=== PATIENT | female | born 2000 | race Caucasian/White ===

== ENCOUNTER 2023-09-02 04:38 | Inpatient (IN) ==
[2023-09-02] MEDS ORDERED: LIDOCAINE 1% LOCAL 20 ML VIAL INFIL PRN (05:43)
[2023-09-02] MEDS ORDERED: OXYTOCIN 30 UNITS/NSS 30 UNITS/500 ML BAG IV PRN (05:43)
[2023-09-02 06:29] LABS: Hematocrit (blood only) 33.1 % (37.0-47.0); Hemoglobin 10.8 g/dl (12.0-16.0); Mean Corpuscular Hemoglobin 27.3 pg (25.0-34.0); Mean Corpuscular Hgb Conc 32.6 g/dL (32.0-36.0); Mean Corpuscular Volume 83.8 fL (80.0-100.0); Platelet Count 230 K/uL (130-400); RDW Coefficient of Variation 14.1 % (11.5-14.5); RDW Standard Deviation 42.5 fL (36.4-46.3); Red Blood Count 3.95 M/uL (4.20-5.40); White Blood Count 10.31 K/ul (4.8-10.8)
[2023-09-02 06:35] LABS: Total Protein Urine Random < 4.0 mg/dl (0-11.9)
[2023-09-02 06:42] LABS: Creatinine Urine Random 27.6 mg/dl
[2023-09-02 06:42] LABS: Alanine Aminotransferase 15 U/L (7-52); Albumin Globulin Ratio 1.2 (0.9-2); Albumin Level 3.6 gm/dl (3.4-5.0); Alkaline Phosphatase 189 U/L (34-104); Anion Gap 9 (3-11); Aspartate Aminotransferase 18 U/L (13-39); BUN Creatinine Ratio 25.5 (10-20); Bilirubin,Total 0.3 mg/dl (0.2-1.0); Blood Urea Nitrogen 12 mg/dl (6-23); Carbon Dioxide 20 mmol/L (21-32); Chloride 108 mmol/L (98-107); Est GFR (African American) > 150.0 ml/min; Est GFR (Non-African American) 138.3 ml/min; Globulin 2.9 gm/dl (2.5-4.0); Glucose 90 mg/dl (70-99(Fasting)); Potassium 3.8 mmol/L (3.5-5.1); Sodium 137 mmol/L (136-145); Total Protein 6.5 gm/dl (6.0-8.3)
--- NOTE | 2023-09-02 07:27 | Labor Progress Brief Note ---
Date of Service September 02, 2023 Subjective 38w3[age] presents with SROM at home overnight, no significant contractions. Good FM and no VB. Fluid clear. Assessment & Plan (1) Normal labor and delivery: Plan: Patient presenting with PROM, has not shown significant labor change, will start pitocin Admission and Anticipated Discharge Date Admission Date: September 02, 2023 Physical Exam Genitourinary: /-3/soft/ant LOF clear FHT Cat 1 Results & Data Vital Signs (Past 12 Hours) Vital Signs Temp Pulse Resp BP 09/02/23 06:35 80 127/67 09/02/23 06:12 98.1 F 18 09/02/23 05:35 82 148/89 H 09/02/23 05:28 78 147/92 H 09/02/23 05:22 80 146/93 H 09/02/23 05:10 18 09/02/23 05:10 98.1 F 09/02/23 05:05 85 189/108 H Coding Level of Care Code None Diagnoses Normal labor and delivery O80
[2023-09-02] MEDS: LACTATED RINGER'S 1,000 ML IV PRN (08:06)
[2023-09-02] MEDS: OXYTOCIN 30 UNITS/NSS 30 UNITS/500 ML BAG IV PRN (08:06)
--- NOTE | 2023-09-02 15:09 | Labor Progress Brief Note ---
Date of Service September 02, 2023 Subjective Patient uncomfortable with contractions. FHT Cat 1 [place] Q 2-4 min SVE 3-4/90/-1 Offered pain options- stadol vs epidural. She'd like to try a dose of Stadol. Assessment & Plan Admission and Anticipated Discharge Date Admission Date: September 02, 2023 Results & Data Vital Signs (Past 12 Hours) Vital Signs Temp Pulse Resp BP 09/02/23 14:00 80 138/80 09/02/23 13:50 83 18 148/68 H 09/02/23 13:30 85 20 152/75 H 09/02/23 13:16 83 136/82 09/02/23 12:09 75 20 142/80 H 09/02/23 11:07 93 H 18 138/84 09/02/23 11:00 20 09/02/23 11:00 36.5 C 20 09/02/23 10:49 83 159/87 H 09/02/23 10:48 90 187/95 H 09/02/23 10:06 81 18 145/89 H 09/02/23 08:59 36.6 C 88 20 144/93 H 09/02/23 07:38 36.6 C 80 20 136/90 09/02/23 06:35 80 127/67 09/02/23 06:12 36.7 C 18 09/02/23 05:35 82 148/89 H 09/02/23 05:28 78 147/92 H 09/02/23 05:22 80 146/93 H 09/02/23 05:10 18 09/02/23 05:10 36.7 C 18 09/02/23 05:05 85 189/108 H Coding Level of Care Code None
[2023-09-02] MEDS: BUTORPHANOL TARTRATE 2 MG/ML VIAL IV ONE (15:15)
--- NOTE | 2023-09-02 17:31 | Anesthesiology Consultation ---
Date of Service September 02, 2023 Assessment & Plan Chart Review Chart Review: Acceptable Risk for Surgery and Patient NOT seen in Pre Admission Testing Consults Requested none ASA ASA2 Proposed Anesthesia Anesthesia Type: Labor Epidural Risk / Benefits Reviewed With: PT / POA / Parent / Guardian, Accepts Plan and Informed Consent Obtained History Height/Weight Height: 5 ft 6 in Weight: 107.501 kg Allergies Allergy/AdvReac Type Severity Reaction Status Date / Time tramadol AdvReac Intermediate gi upset Verified 09/01/23 10:19 Medications Home Medications Medication Instructions Recorded Confirmed Last Taken ferrous sulfate 1 tab PO DAILY 01/20/23 09/02/23 09/01/23 08:00 vit-iron fum-folic ac 1 caplet PO DAILY 01/20/23 09/02/23 09/01/23 08:00 [ Formula] aspirin 81 mg chewable tablet 1 tab PO DAILY 09/02/23 09/02/23 09/01/23 08:00 Active Medications Generic Name Dose Route Start Last Admin Trade Name Freq PRN Reason Stop Dose Admin Lactated Ringer's 1,000 mls @ 125 mls/hr 09/02/23 05:43 09/02/23 17:29 Lr IV 09/04/23 05:42 999 mls/hr .Q8H PRN Administration L&D Protocol Protocol Oxytocin 30 units in 500 mls @ 8 mls/hr 09/02/23 07:31 09/02/23 14:10 Pitocin 30 Units/Nss IV 09/04/23 07:30 0.48 units/hr .Q24H PRN 8 mls/hr Labor Induction/Augmentation Titration Protocol 0.48 UNITS/HR NPO Date Last Intake of Fluids: 09/02/23 Time Last Intake of Fluids: 16:30 Date Last Intake of Solids: 09/01/23 Time Last Intake of Solids: 20:00 Past Medical History Medical History (Updated 09/02/23 @ 07:26 by Mini Caldwell MD) Fibroadenoma of right breast Varicella vaccination Exercise / Class Metabolic Activity II 4-5 Yardwork/Stairs/Walk up hill Past Family History Family History (Updated 02/17/23 @ 08:28 by SASHA Barbosa) Grandmother (Paternal) Leukemia Aunt Breast cancer Father IgA nephropathy Denies family history of Ovarian cancer Prostate cancer Diabetes Myocardial infarction Lung cancer Colorectal cancer Stroke Past Surgical History Surgical History History of hand surgery cyst removal on right hand Past Anesthesia History No Hx of Anesthesia Complications and No Family Hx of Anesthesia Complications History of PONV No Hx of PONV and No Hx of Motion Sickness Social History Smoking Status: Never smoker Do You Dip or Chew Tobacco: No Hx Alcohol Use: No Hx Substance Use: No substance use type: does not use Review of Systems ROS Unobtainable: All systems reviewed & are unremarkable except as noted in HPI & below Physical Exam Vital Signs Last Vital Signs Temp 36.4 C L 09/02/23 16:33 Pulse 77 09/02/23 17:23 Resp 18 09/02/23 16:33 BP 142/89 H 09/02/23 17:21 Pulse Ox 97 09/02/23 17:23 ENMT Mouth: no TMJ abnormality Thyromental Distance: > or= 3.5 Finger Breadths Mallampati Class: II Neck normal visual inspection and trachea midline; neck extension not limited Respiratory normal respiratory effort Auscultation: lungs clear to auscultation bilaterally Cardiovascular Rate/Rhythm: regular rate and regular rhythm Heart Sounds: no murmur Musculoskeletal Spine: normal cervical ROM Extremities: full ROM of extremities Neurologic moves all extremities Psychiatric Orientation: alert and oriented x 3 Testing Laboratory Results 09/02/23 05:57 09/02/23 05:57
[2023-09-02] MEDS: LIDOCAINE 2%/EPINEPHRINE 1:200,000 20 ML PF ONE (17:48)
[2023-09-02] MEDS: SODIUM CHLORIDE 0.9% PF INJ 10 ML VIAL ONE (17:48)
[2023-09-02] MEDS: fentaNYL citrate PF 100 MCG/2 ML VIAL ONE (17:48)
[2023-09-02] MEDS: BUPIVACAINE 0.25% PF 30 ML VIAL ONE (17:48)
[2023-09-02] MEDS: fentANYL 2 MCG/ML BUPIVacaine 0.125%-NSS 100ML BAG ONE (17:50)
[2023-09-02] MEDS ORDERED: diphenhydrAMINE 50 MG/ML VIAL IV PRN (17:51)
[2023-09-02] MEDS ORDERED: NALOXONE HCL 0.4 MG/1 ML VIAL/CARP IV PRN (17:51)
[2023-09-02] MEDS ORDERED: SODIUM CHLORIDE 0.9% PF INJ 10 ML VIAL EPI PRN (17:51)
[2023-09-02] MEDS ORDERED: ROPIVACAINE 0.5% PF 5 MG/ML 20 ML VIAL EPI PRN (17:51)
[2023-09-02] MEDS ORDERED: NALBUPHINE HCL 5 MG in SYRINGE 0 ML IV PRN (17:51)
[2023-09-02] MEDS ORDERED: NALOXONE HCL 1 MG in SODIUM CHLORIDE 0.9% 1,000 ML IV PRN (17:51)
[2023-09-02] MEDS ORDERED: BUPIVACAINE 0.25% PF 30 ML VIAL EPI PRN (17:51)
[2023-09-02] MEDS ORDERED: fentaNYL citrate PF 100 MCG/2 ML VIAL EPI PRN (17:51)
[2023-09-02] MEDS ORDERED: ePHEDrine sulfate 50 MG/ML AMP IV PRN (17:51)
[2023-09-02] MEDS ORDERED: LIDOCAINE 2% MPF LOCAL 5 ML VIAL EPI PRN (17:51)
[2023-09-02] MEDS: BUPIVACAINE 0.25% PF 30 ML VIAL EPI STA (19:23)
[2023-09-02] MEDS: SODIUM CHLORIDE 0.9% PF INJ 10 ML VIAL EPI STA (19:23)
[2023-09-02] MEDS: fentaNYL citrate PF 100 MCG/2 ML VIAL EPI STA (19:23)
[2023-09-02] MEDS: ePHEDrine sulfate 50 MG/ML AMP ONE (19:23)
[2023-09-02] MEDS: LIDOCAINE 2%/EPINEPHRINE 1:200,000 20 ML PF EPI STA (19:23)
--- NOTE | 2023-09-02 21:02 | Labor Progress Brief Note ---
Date of Service September 02, 2023 Subjective Comfortable with epidural. 5/90/-1 per RN. FHT Cat 1 [place] Q 2-4 Continue IOL. Assessment & Plan Admission and Anticipated Discharge Date Admission Date: September 02, 2023 Results & Data Vital Signs (Past 12 Hours) Vital Signs Temp Pulse Resp BP Pulse Ox 09/02/23 20:58 66 98 09/02/23 20:53 68 100 09/02/23 20:48 75 100 09/02/23 20:46 76 137/57 L 09/02/23 20:43 89 98 09/02/23 20:38 83 99 09/02/23 20:33 88 100 09/02/23 20:31 100 H 124/73 09/02/23 20:28 75 97 09/02/23 20:23 77 98 09/02/23 20:18 82 99 09/02/23 20:15 78 122/64 09/02/23 20:13 76 97 09/02/23 20:08 75 98 09/02/23 20:03 72 99 09/02/23 20:01 73 121/65 09/02/23 19:58 87 97 09/02/23 19:53 81 100 09/02/23 19:48 87 99 09/02/23 19:46 73 109/64 09/02/23 19:43 76 98 09/02/23 19:38 74 98 09/02/23 19:33 74 98 09/02/23 19:31 75 119/61 09/02/23 19:28 77 98 09/02/23 19:23 74 98 09/02/23 19:18 76 97 09/02/23 19:15 74 118/59 L 09/02/23 19:13 73 97 09/02/23 19:10 18 09/02/23 19:10 36.6 C 18 09/02/23 19:08 85 100 09/02/23 19:07 77 117/58 L 09/02/23 19:05 36.6 C 18 09/02/23 19:03 94 H 97 09/02/23 19:02 70 119/57 L 09/02/23 18:58 70 97 09/02/23 18:53 69 97 09/02/23 18:48 79 98 09/02/23 18:47 78 94 09/02/23 18:46 82 20 119/66 09/02/23 18:43 73 96 09/02/23 18:38 76 97 09/02/23 18:33 72 97 09/02/23 18:28 73 97 09/02/23 18:26 73 114/55 L 09/02/23 18:23 75 97 09/02/23 18:21 69 112/56 L 09/02/23 18:18 69 96 09/02/23 18:16 82 20 119/54 L 09/02/23 18:13 82 98 09/02/23 18:09 71 98/54 L 09/02/23 18:08 72 97 09/02/23 18:07 82 18 108/50 L 09/02/23 18:05 78 104/56 L 09/02/23 18:04 79 18 117/57 L 09/02/23 18:03 82 98 09/02/23 18:01 68 101/49 L 09/02/23 17:59 71 18 99/52 L 09/02/23 17:58 73 97 09/02/23 17:57 67 18 110/50 L 09/02/23 17:55 78 107/56 L 09/02/23 17:53 97 09/02/23 17:53 76 09/02/23 17:53 75 18 114/57 L 09/02/23 17:51 80 112/54 L 09/02/23 17:50 75 18 113/56 L 09/02/23 17:48 83 98 09/02/23 17:47 86 18 122/71 09/02/23 17:46 88 18 145/74 H 09/02/23 17:43 92 H 18 160/101 H 99 09/02/23 17:39 93 H 94 09/02/23 17:38 86 99 09/02/23 17:33 86 145/91 H 100 09/02/23 17:28 98 H 98 09/02/23 17:23 77 97 09/02/23 17:21 86 20 142/89 H 09/02/23 17:18 81 100 09/02/23 17:13 81 99 09/02/23 17:08 81 99 09/02/23 17:03 86 100 09/02/23 16:58 73 99 09/02/23 16:47 95 H 100 09/02/23 16:42 91 H 100 09/02/23 16:37 67 98 09/02/23 16:33 36.4 C L 68 18 139/71 09/02/23 16:32 73 97 09/02/23 15:42 69 18 129/66 09/02/23 15:27 68 139/71 09/02/23 15:15 20 09/02/23 15:15 36.3 C L 20 09/02/23 15:08 89 20 182/84 H 09/02/23 14:00 80 138/80 09/02/23 13:50 83 18 148/68 H 09/02/23 13:30 85 20 152/75 H 09/02/23 13:16 83 136/82 09/02/23 12:09 75 20 142/80 H 09/02/23 11:07 93 H 18 138/84 09/02/23 11:00 20 09/02/23 11:00 36.5 C 20 09/02/23 10:49 83 159/87 H 09/02/23 10:48 90 187/95 H 09/02/23 10:06 81 18 145/89 H Coding Level of Care Code None
--- NOTE | 2023-09-02 23:02 | Labor Progress Brief Note ---
Date of Service September 02, 2023 Subjective Comfortable. FHT Cat 1 [place] Q 2-4 SVE 6/100/-1 IUPC placed. Assessment & Plan Admission and Anticipated Discharge Date Admission Date: September 02, 2023 Results & Data Vital Signs (Past 12 Hours) Vital Signs Temp Pulse Resp BP Pulse Ox 09/02/23 22:58 85 99 09/02/23 22:53 89 100 09/02/23 22:48 72 98 09/02/23 22:45 75 117/57 L 09/02/23 22:43 78 100 09/02/23 22:38 71 98 09/02/23 22:33 85 99 09/02/23 22:31 83 146/80 H 09/02/23 22:28 95 H 100 09/02/23 22:23 80 97 09/02/23 22:18 82 99 09/02/23 22:15 76 130/65 09/02/23 22:13 78 98 09/02/23 22:08 79 98 09/02/23 22:03 81 98 09/02/23 22:01 75 134/67 09/02/23 21:58 76 97 09/02/23 21:53 84 99 09/02/23 21:48 81 99 09/02/23 21:46 77 130/61 09/02/23 21:43 89 99 09/02/23 21:38 84 100 09/02/23 21:33 91 H 98 09/02/23 21:31 66 104/55 L 09/02/23 21:28 67 97 09/02/23 21:23 73 97 09/02/23 21:18 70 97 09/02/23 21:16 65 110/52 L 09/02/23 21:13 68 98 09/02/23 21:08 66 98 09/02/23 21:03 79 99 09/02/23 21:01 69 108/53 L 09/02/23 21:00 18 09/02/23 21:00 36.7 C 18 09/02/23 20:58 66 98 09/02/23 20:53 68 100 09/02/23 20:48 75 100 09/02/23 20:46 76 137/57 L 09/02/23 20:43 89 98 09/02/23 20:38 83 99 09/02/23 20:33 88 100 09/02/23 20:31 100 H 124/73 09/02/23 20:28 75 97 09/02/23 20:23 77 98 09/02/23 20:18 82 99 09/02/23 20:15 78 122/64 09/02/23 20:13 76 97 09/02/23 20:08 75 98 09/02/23 20:03 72 99 09/02/23 20:01 73 121/65 09/02/23 19:58 87 97 09/02/23 19:53 81 100 09/02/23 19:48 87 99 09/02/23 19:46 73 109/64 09/02/23 19:43 76 98 09/02/23 19:38 74 98 09/02/23 19:33 74 98 09/02/23 19:31 75 119/61 09/02/23 19:28 77 98 09/02/23 19:23 74 98 09/02/23 19:18 76 97 09/02/23 19:15 74 118/59 L 09/02/23 19:13 73 97 09/02/23 19:10 18 09/02/23 19:10 36.6 C 18 09/02/23 19:08 85 100 09/02/23 19:07 77 117/58 L 09/02/23 19:05 36.6 C 18 09/02/23 19:03 94 H 97 09/02/23 19:02 70 119/57 L 09/02/23 18:58 70 97 09/02/23 18:53 69 97 09/02/23 18:48 79 98 09/02/23 18:47 78 94 09/02/23 18:46 82 20 119/66 09/02/23 18:43 73 96 09/02/23 18:38 76 97 09/02/23 18:33 72 97 09/02/23 18:28 73 97 09/02/23 18:26 73 114/55 L 09/02/23 18:23 75 97 09/02/23 18:21 69 112/56 L 09/02/23 18:18 69 96 09/02/23 18:16 82 20 119/54 L 09/02/23 18:13 82 98 09/02/23 18:09 71 98/54 L 09/02/23 18:08 72 97 09/02/23 18:07 82 18 108/50 L 09/02/23 18:05 78 104/56 L 09/02/23 18:04 79 18 117/57 L 09/02/23 18:03 82 98 09/02/23 18:01 68 101/49 L 09/02/23 17:59 71 18 99/52 L 09/02/23 17:58 73 97 09/02/23 17:57 67 18 110/50 L 09/02/23 17:55 78 107/56 L 09/02/23 17:53 97 09/02/23 17:53 76 09/02/23 17:53 75 18 114/57 L 09/02/23 17:51 80 112/54 L 09/02/23 17:50 75 18 113/56 L 09/02/23 17:48 83 98 09/02/23 17:47 86 18 122/71 09/02/23 17:46 88 18 145/74 H 09/02/23 17:43 92 H 18 160/101 H 99 09/02/23 17:39 93 H 94 09/02/23 17:38 86 99 09/02/23 17:33 86 145/91 H 100 09/02/23 17:28 98 H 98 09/02/23 17:23 77 97 09/02/23 17:21 86 20 142/89 H 09/02/23 17:18 81 100 09/02/23 17:13 81 99 09/02/23 17:08 81 99 09/02/23 17:03 86 100 09/02/23 16:58 73 99 09/02/23 16:47 95 H 100 09/02/23 16:42 91 H 100 09/02/23 16:37 67 98 09/02/23 16:33 36.4 C L 68 18 139/71 09/02/23 16:32 73 97 09/02/23 15:42 69 18 129/66 09/02/23 15:27 68 139/71 09/02/23 15:15 20 09/02/23 15:15 36.3 C L 20 09/02/23 15:08 89 20 182/84 H 09/02/23 14:00 80 138/80 09/02/23 13:50 83 18 148/68 H 09/02/23 13:30 85 20 152/75 H 09/02/23 13:16 83 136/82 09/02/23 12:09 75 20 142/80 H 09/02/23 11:07 93 H 18 138/84 Coding Level of Care Code None
[2023-09-03] MEDS: ACETAMINOPHEN 500 MG TAB PO PRN (00:44)
[2023-09-03] MEDS: fentANYL 2 MCG/ML BUPIVacaine 0.125%-NSS 100ML BAG EPI PRN (04:22)
--- NOTE | 2023-09-03 05:21 | History & Physical Bridge Note ---
Date of Service September 03, 2023 History & Physical Bridge Note I have examined the patient, reviewed the History & Physical and in the interval since the performance of the History & Physical I have noted the following changes of clinical significance: Patient has had IUPC for 6h, contractions are not adequate. Cervix remains unchanged, 6/100/-1. FHT Cat 1. [place] Q 2 but not adequate MVU. Discussed stalled labor, patient is agreeable to section. Reviewed risks/benefits/alternatives. Informed consent. Questions answered. Will proceed to OR.
--- NOTE | 2023-09-03 05:22 | History & Physical Report ---
Date of Service September 03, 2023 Assessment & Plan (1) Supervision of normal first : Plan: At this point, patient has been stalled at 6cm cervical dilation for 6 hours without adequate cervical contractions, has been on pitocin. Will proceed with section. Admission and Anticipated Discharge Date Admission Date: September 02, 2023 History of Present Illness Chief Complaint: PROM Primary Care Provider: ANTOINE Leos 22yo @ 38 08/09, was admitted yesterday lapel padder by previous physician. Please see her note for documentation about patient's arrival. Allergies Allergy/AdvReac Type Severity Reaction Status Date / Time tramadol AdvReac Intermediate gi upset Verified 09/01/23 10:19 Home Medications Medication Instructions Recorded Confirmed Type ferrous sulfate 1 tab PO DAILY 01/20/23 09/02/23 History vit-iron fum-folic ac 1 caplet PO DAILY 01/20/23 09/02/23 History [ Formula] aspirin 81 mg chewable tablet 1 tab PO DAILY 09/02/23 09/02/23 History Patient History Medical History (Updated 09/02/23 @ 07:26 by Mini Caldwell MD) Fibroadenoma of right breast Varicella vaccination Surgical History History of hand surgery cyst removal on right hand Family History (Updated 02/17/23 @ 08:28 by SASHA Barbosa) Grandmother (Paternal) Leukemia Aunt Breast cancer Father IgA nephropathy Denies family history of Ovarian cancer Prostate cancer Diabetes Myocardial infarction Lung cancer Colorectal cancer Stroke Social History (Updated 02/17/23 @ 08:27 by SASHA Barbosa) Smoking Status: Never smoker Second Hand Exposure: No; Do You Dip or Chew Tobacco: No; Tobacco Cessation Education Requested by Patient: No Hx Alcohol Use: No Hx Substance Use: No Preferred Language: Kiswahili Communication Ability: Effective Visual Impairment: Limited Hearing Ability: Normal Compressor Repairer Required: No Beliefs That Will Affect Care: Cultural Cultural Beliefs: prefers female providers marital status: marital status details: Ricardo Quinteros (23) [phone] Current Living Situation: Spouse Current Living Situation Comment: lives with spouse, no pets current occupational status: employed 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[employer] How many Children do You have: 0 Feels Safe at Home: Yes Safety Concerns: Feels Safe At This Time Childhood Exposure to Second-Hand Smoke: No caffeine: Yes (drinks coffee ) Dental Care, Regularly: No Physical Activity Frequency: 1-2 Times per Week Seatbelt Use: always Sunscreen Use: No Assistive Devices: Glasses Review of Systems All systems reviewed & are unremarkable except as noted in HPI & below Physical Exam Constitutional: WD/WN, vitals as above Respiratory: normal respiratory effort, lungs clear to auscultation no respiratory distress Cardiovascular: Rate/Rhythm: regular rate and regular rhythm Gastrointestinal (Abdomen): Inspection/Auscultation: abdomen normal to inspection Percussion/Palpation: abdomen soft; abdomen nontender Gravid. No s/s chorio or abruption. Skin: no rashes, warm and dry Psychiatric: A+Ox3, euthymic affect Results & Data Vital Signs (Past 12 Hours) Vital Signs Temp Pulse Resp BP Pulse Ox 09/03/23 05:18 99 H 97 09/03/23 05:16 96 H 141/80 H 09/03/23 05:13 107 H 98 09/03/23 05:08 120 H 98 09/03/23 05:03 93 H 99 09/03/23 04:58 91 H 99 09/03/23 04:53 96 H 99 09/03/23 04:48 91 H 99 09/03/23 04:46 91 H 122/82 09/03/23 04:43 91 H 98 09/03/23 04:38 86 98 09/03/23 04:33 89 98 09/03/23 04:32 90 123/65 09/03/23 04:28 86 97 09/03/23 04:23 85 98 09/03/23 04:18 83 98 09/03/23 04:17 73 113/61 09/03/23 04:16 77 92 09/03/23 04:13 85 98 09/03/23 04:08 78 97 09/03/23 04:03 80 98 09/03/23 04:01 74 107/59 L 09/03/23 03:58 80 98 09/03/23 03:53 69 96 09/03/23 03:48 67 97 09/03/23 03:46 68 92/55 L 09/03/23 03:43 66 97 09/03/23 03:38 67 97 09/03/23 03:33 67 97 09/03/23 03:32 67 99/55 L 09/03/23 03:28 70 97 09/03/23 03:23 73 98 09/03/23 03:18 69 97 09/03/23 03:16 71 108/56 L 09/03/23 03:13 85 98 09/03/23 03:08 85 98 09/03/23 03:03 79 98 09/03/23 03:01 76 126/56 L 09/03/23 03:00 18 09/03/23 03:00 36.8 C 18 09/03/23 02:58 83 96 09/03/23 02:53 79 96 09/03/23 02:48 83 96 09/03/23 02:46 79 132/61 09/03/23 02:43 84 96 09/03/23 02:38 74 97 09/03/23 02:33 91 H 98 09/03/23 02:30 76 120/57 L 09/03/23 02:28 80 97 09/03/23 02:23 74 97 09/03/23 02:18 72 97 09/03/23 02:17 73 120/56 L 09/03/23 02:13 76 96 09/03/23 02:08 75 96 09/03/23 02:03 75 97 09/03/23 02:01 72 127/62 09/03/23 01:58 88 96 09/03/23 01:53 73 97 09/03/23 01:48 76 97 09/03/23 01:45 71 127/67 09/03/23 01:43 75 98 09/03/23 01:38 99 H 99 09/03/23 01:33 71 97 09/03/23 01:30 77 118/63 09/03/23 01:28 70 97 09/03/23 01:23 99 H 99 09/03/23 01:18 85 99 09/03/23 01:16 68 107/63 09/03/23 01:13 72 97 09/03/23 01:08 70 97 09/03/23 01:03 70 97 09/03/23 01:02 71 117/63 09/03/23 01:00 18 09/03/23 01:00 36.5 C 18 09/03/23 00:58 74 98 09/03/23 00:53 71 98 09/03/23 00:48 75 99 09/03/23 00:46 78 111/69 09/03/23 00:43 76 99 09/03/23 00:38 83 99 09/03/23 00:33 86 99 09/03/23 00:30 76 120/64 09/03/23 00:28 81 99 09/03/23 00:23 80 98 09/03/23 00:18 80 98 09/03/23 00:17 78 116/62 09/03/23 00:13 78 98 09/03/23 00:08 74 97 09/03/23 00:03 80 97 09/03/23 00:01 80 145/73 H 09/02/23 23:58 89 97 09/02/23 23:53 84 96 09/02/23 23:48 80 97 09/02/23 23:46 86 125/74 09/02/23 23:43 84 96 09/02/23 23:38 81 97 09/02/23 23:33 84 98 09/02/23 23:31 80 132/72 09/02/23 23:28 92 H 99 09/02/23 23:23 87 97 09/02/23 23:18 84 99 09/02/23 23:15 81 139/68 09/02/23 23:13 78 97 09/02/23 23:08 77 97 09/02/23 23:03 86 99 09/02/23 23:00 18 09/02/23 23:00 36.8 C 18 09/02/23 22:58 85 99 09/02/23 22:53 89 100 09/02/23 22:48 72 98 09/02/23 22:45 75 117/57 L 09/02/23 22:43 78 100 09/02/23 22:38 71 98 09/02/23 22:33 85 99 09/02/23 22:31 83 146/80 H 09/02/23 22:28 95 H 100 09/02/23 22:23 80 97 09/02/23 22:18 82 99 09/02/23 22:15 76 130/65 09/02/23 22:13 78 98 09/02/23 22:08 79 98 09/02/23 22:03 81 98 04/30/24 22:01 75 134/67 09/02/23 21:58 76 97 09/02/23 21:53 84 99 09/02/23 21:48 81 99 09/02/23 21:46 77 130/61 09/02/23 21:43 89 99 09/02/23 21:38 84 100 09/02/23 21:33 91 H 98 09/02/23 21:31 66 104/55 L 09/02/23 21:28 67 97 09/02/23 21:23 73 97 09/02/23 21:18 70 97 09/02/23 21:16 65 110/52 L 09/02/23 21:13 68 98 09/02/23 21:08 66 98 09/02/23 21:03 79 99 09/02/23 21:01 69 108/53 L 09/02/23 21:00 18 09/02/23 21:00 36.7 C 18 09/02/23 20:58 66 98 09/02/23 20:53 68 100 09/02/23 20:48 75 100 09/02/23 20:46 76 137/57 L 09/02/23 20:43 89 98 09/02/23 20:38 83 99 09/02/23 20:33 88 100 09/02/23 20:31 100 H 124/73 09/02/23 20:28 75 97 09/02/23 20:23 77 98 09/02/23 20:18 82 99 09/02/23 20:15 78 122/64 09/02/23 20:13 76 97 09/02/23 20:08 75 98 09/02/23 20:03 72 99 09/02/23 20:01 73 121/65 09/02/23 19:58 87 97 09/02/23 19:53 81 100 09/02/23 19:48 87 99 09/02/23 19:46 73 109/64 09/02/23 19:43 76 98 09/02/23 19:38 74 98 09/02/23 19:33 74 98 09/02/23 19:31 75 119/61 09/02/23 19:28 77 98 09/02/23 19:23 74 98 09/02/23 19:18 76 97 09/02/23 19:15 74 118/59 L 09/02/23 19:13 73 97 09/02/23 19:10 18 09/02/23 19:10 36.6 C 18 09/02/23 19:08 85 100 09/02/23 19:07 77 117/58 L 09/02/23 19:05 36.6 C 18 09/02/23 19:03 94 H 97 09/02/23 19:02 70 119/57 L 09/02/23 18:58 70 97 09/02/23 18:53 69 97 09/02/23 18:48 79 98 09/02/23 18:47 78 94 09/02/23 18:46 82 20 119/66 09/02/23 18:43 73 96 09/02/23 18:38 76 97 09/02/23 18:33 72 97 09/02/23 18:28 73 97 09/02/23 18:26 73 114/55 L 09/02/23 18:23 75 97 09/02/23 18:21 69 112/56 L 09/02/23 18:18 69 96 09/02/23 18:16 82 20 119/54 L 09/02/23 18:13 82 98 09/02/23 18:09 71 98/54 L 09/02/23 18:08 72 97 09/02/23 18:07 82 18 108/50 L 09/02/23 18:05 78 104/56 L 09/02/23 18:04 79 18 117/57 L 09/02/23 18:03 82 98 09/02/23 18:01 68 101/49 L 09/02/23 17:59 71 18 99/52 L 09/02/23 17:58 73 97 09/02/23 17:57 67 18 110/50 L 09/02/23 17:55 78 107/56 L 09/02/23 17:53 97 09/02/23 17:53 76 09/02/23 17:53 75 18 114/57 L 09/02/23 17:51 80 112/54 L 09/02/23 17:50 75 18 113/56 L 09/02/23 17:48 83 98 09/02/23 17:47 86 18 122/71 09/02/23 17:46 88 18 145/74 H 09/02/23 17:43 92 H 18 160/101 H 99 09/02/23 17:39 93 H 94 09/02/23 17:38 86 99 09/02/23 17:33 86 145/91 H 100 09/02/23 17:28 98 H 98 09/02/23 17:23 77 97 Code Status & VTE Plan VTE Prophylaxis Plan VTE Prophylaxis will be ordered: No Reason for no VTE drug order: Treatment not indicated Coding Level of Care Code None Diagnoses Supervision of normal first Z34.00
--- NOTE | 2023-09-03 05:39 | Communication Note ---
Date of Service: September 03, 2023 Decision made to proceed with c/s for failure to progress. Epidural working well. ASA 2E
[2023-09-03] MEDS: CARBOPROST TROMETHAMINE 250 MCG/ML AMPUL IM ONE (05:41)
[2023-09-03] MEDS: ONDANSETRON INJ 2 MG/ML 2 ML VIAL IV PRN ×2 (05:43→17:14)
[2023-09-03] MEDS: LACTATED RINGER'S 1,000 ML IV SCH (05:46)
[2023-09-03] MEDS: ceFAZolin 3000MG 3,000 MG/72.5 ML BAG IV SCH (05:52)
[2023-09-03] MEDS ORDERED: AZITHROMYCIN 500 MG in DEXTROSE 5% 250 ML IV SCH (06:00)
[2023-09-03] MEDS: CITRIC ACID/SODIUM CITRATE 15 ML UDC PO SCH (06:02)
[2023-09-03] MEDS ORDERED: MoRPHine SULFATE PF 1 MG/ML 10 ML AMP/VIAL ONE (06:27)
[2023-09-03] MEDS ORDERED: LIDOCAINE 2%/EPINEPHRINE 1:200,000 20 ML PF ONE (06:27)
[2023-09-03] MEDS ORDERED: OXYTOCIN 10 UNITS/ML VIAL ONE (06:27)
[2023-09-03] MEDS ORDERED: DEXAMETHASONE SOD INJ 4 MG/ML VIAL ONE (06:27)
[2023-09-03] MEDS ORDERED: ONDANSETRON INJ 2 MG/ML 2 ML VIAL ONE (06:27)
[2023-09-03] MEDS ORDERED: DexMEDEtomidine HCL IV 100 MCG/ML VIAL IV ONE (06:35)
[2023-09-03] MEDS ORDERED: NALOXONE HCL 0.08 MG in SYRINGE 1.8 ML IV PRN (06:50)
[2023-09-03] MEDS ORDERED: PROMETHAZINE HCL 6.25 MG in SODIUM CHLORIDE 0.9% 50 ML IV PRN (06:50)
[2023-09-03] MEDS ORDERED: LACTATED RINGER'S 500 ML IV PRN (06:50)
[2023-09-03] MEDS ORDERED: MoRPHine SULFATE PF 1 MG/ML 10 ML AMP/VIAL EPI ONE (06:50)
[2023-09-03] MEDS ORDERED: ePHEDrine sulfate 50 MG/ML AMP IV PRN (06:50)
[2023-09-03] MEDS ORDERED: MEPERIDINE HCL 25 MG/ML CARP/VIAL IV PRN (06:50)
[2023-09-03] MEDS ORDERED: NALOXONE HCL 0.4 MG/1 ML VIAL/CARP IV PRN (06:50)
[2023-09-03] MEDS ORDERED: DROPERIDOL 5 MG/2 ML VIAL IV PRN (06:50)
[2023-09-03] MEDS ORDERED: NALOXONE HCL 1 MG in SODIUM CHLORIDE 0.9% 1,000 ML IV PRN (06:50)
[2023-09-03] MEDS ORDERED: diphenhydrAMINE 50 MG/ML VIAL IV PRN (06:50)
[2023-09-03] MEDS ORDERED: NALBUPHINE HCL 5 MG in SYRINGE 0 ML IV PRN (06:50)
[2023-09-03] MEDS ORDERED: HYDROmorphone INJ 0.5 MG/0.5 ML SYR IV PRN (06:50)
[2023-09-03] MEDS ORDERED: diphenhydrAMINE 50 MG/ML VIAL ONE (06:58)
[2023-09-03] MEDS ORDERED: DC INTRASPINAL MORPHINE SCH (07:00)
[2023-09-03] MEDS ORDERED: NO NARCOTICS OR SEDATIVES SCH (07:00)
[2023-09-03] MEDS ORDERED: SODIUM CHLORIDE 0.9% 1,000 ML IV SCH (07:00)
--- NOTE | 2023-09-03 07:22 | Operative Report ---
PG Post Operative Report Pre & Post Diagnosis Operation Date: 09/03/23 05:25 Pre: failure to dilate Post: same I identified the patient and participated in the time-out.: Yes Procedure Operation Date: 09/03/23 05:25 Primary Low Transverse Section Surgeon Neida Decker DO Lightning Rod Installer Oumou Perez MD Estimated Blood Loss 858 (QBL) Findings Consistent with Post-Op Diagnosis Viable male , Apgars 8/9. 4040g (8lb 14.5 oz). Specimens placenta, cord blood, cord gas Drains miller clear yellow Anesthesia Type L&D Only Epidural Exists Complications none Disposition Accompanied Patient To Recovery: No Disposition: L&D Indications 22yo @ 40 4/7, PROM and labor augmentation with pitocin. She progressed to 6cm, and then despite pitocin was unable to progress beyond 6cm for >6h. Description of Procedure The patient was seen in her labor and delivery room, risks benefits and alternatives to surgery were reviewed. Informed consent obtained. Questions were answered. She was taken to the operating room, spinal anesthesia was administered. She was then prepared and draped in the usual sterile fashion in the supine position with a leftward tilt. Timeout was confirmed. A Pfannenstiel skin incision was made with a scalpel, and carried through to the underlying layer of fascia. Fascia was nicked at midline, and this incision was extended bilaterally. The superior aspect of the fascial incision was grasped with Glory clamps x2, elevated off the underlying rectus abdominis muscles, and dissected sharply and bluntly. In similar fashion, the inferior aspect of the fascial incision was dissected. The rectus abdominis muscles were , and the peritoneum was entered bluntly digitally. This was extended bilaterally. The bladder flap was taken down carefully using Metzenbaum scissors. Using a new scalpel, a low transverse uterine incision was created. Clear amniotic fluid noted. The infant was delivered from a cephalic presentation. The head delivered, followed by shoulders and body. Spontaneous cry on the field. The cord was doubly clamped and cut, and the was handed off to the waiting metal filer. A segment was retained for cord gases. Cord blood was obtained. The placenta was delivered spontaneously intact. The uterus was exteriorized, and cleared of all clots and debris. The hysterotomy incision was reapproximated using 0 Vicryl in a running locked stitch. A second layer of the same suture was used to imbricate the incision. The uterine tone improved, brock zeeshan still somewhat atonic - therefore one dose of Hemabate was injected into the uterine muscle and uterine massage performed. Uterine tone improved significantly. Posterior uterus was evaluated and normal. The uterus was returned to the abdomen, and gutters were cleared of clots and debris. Excellent hemostasis was observed. The fascial incision was reapproximated using 0 Vicryl in a running stitch. The subcutaneous tissue was irrigated, and reapproximated using 2-0 plain gut in a running stitch. The skin was reapproximated using 4-0 Vicryl in a running subcuticular stitch. Steri-Strips and a bandage were applied. The patient tolerated the procedure well, and will be taken to the recovery area in stable and good condition. I attest to the content of the Intraoperative Record and any orders documented therein. Any exceptions are noted below. OB Procedure Charges 80552
[2023-09-03 07:39] LABS: Base Excess Cord Arterial Bld -3.2 mEq/L (-9-1.8); CO2 Cord Arterial Blood 48 mmHg (39.1-73.5); HCO3 Cord Arterial Blood 24 mmol/L (19.7-28.5); Oxygen Sat Cord Arterial Blood < 60.0 % (<60); PO2 Cord Arterial Blood < 20 mmHg (4.1-31.7)
[2023-09-03] MEDS ORDERED: HYDROCORTISONE ACETATE 25 MG SUPP PR PRN (07:39)
[2023-09-03 07:40] LABS: Base Excess Cord Venous Blood -2.8 mEq/L (-7.7-1.9); Cord Venous Blood HCO3 22 mmol/L (18.4-26.8); Cord Venous Blood PCO2 37 mmHg (30.4-57.2); Cord Venous Blood PO2 23 mmHg (14.1-43.3); Cord Venous Blood pH 7.38 (7.20-7.44); O2 Saturation Cord Venous Bld < 60.0 % (<68)
[2023-09-03] MEDS ORDERED: SODIUM CHLORIDE 0.9% 250 ML IV PRN (07:46)
[2023-09-03] MEDS: OXYTOCIN 30 UNITS/LR 1,003 ML IV SCH (08:36)
--- NOTE | 2023-09-03 11:47 | Anesthesiology Progress Note ---
Date of Service September 03, 2023 Anesthesia Post Procedure Vital Signs Vital Signs: Temp Pulse Pulse Resp BP BP Pulse Ox 09/03/23 11:00 16 97 09/03/23 11:00 76 16 124/65 97 09/03/23 10:12 16 98 09/03/23 10:12 37.1 C 82 16 98 09/03/23 09:22 89 98 09/03/23 09:17 97 09/03/23 09:17 72 09/03/23 09:17 70 113/53 L 09/03/23 09:12 71 97 09/03/23 09:07 75 113/53 L 98 09/03/23 09:02 69 97 09/03/23 08:57 69 113/53 L 98 09/03/23 08:52 71 97 09/03/23 08:47 89 18 98 09/03/23 08:47 97 09/03/23 08:47 69 09/03/23 08:47 66 110/55 L 09/03/23 08:42 70 97 09/03/23 08:38 75 121/59 L 09/03/23 08:37 74 97 09/03/23 08:32 78 97 09/03/23 08:27 72 106/50 L 97 09/03/23 08:22 74 97 09/03/23 08:18 82 117/56 L 09/03/23 08:17 74 18 97 09/03/23 08:17 84 97 09/03/23 08:12 87 97 09/03/23 08:07 81 20 97 09/03/23 08:07 83 111/56 L 97 09/03/23 08:02 81 97 09/03/23 07:57 81 20 97 09/03/23 07:57 89 107/58 L 97 09/03/23 07:52 80 97 09/03/23 07:47 89 20 97 09/03/23 07:47 82 114/74 97 09/03/23 07:42 84 97 09/03/23 07:37 89 20 97 09/03/23 07:37 88 110/57 L 99 09/03/23 07:32 86 98 09/03/23 07:30 76 94 09/03/23 07:27 89 18 107/58 L 97 09/03/23 07:27 84 140/61 96 09/03/23 07:22 77 96 05 07:17 36.8 C 88 20 99 09/03/23 07:17 76 139/63 05 06:01 96 H 127/73 09/03/23 05:58 90 99 05 05:53 89 97 09/03/23 05:48 89 96 09/03/23 05:45 96 H 148/79 H 09/03/23 05:43 96 H 98 09/03/23 05:38 105 H 97 09/03/23 05:33 108 H 98 09/03/23 05:30 107 H 147/78 H 09/03/23 05:28 115 H 98 09/03/23 05:23 106 H 100 09/03/23 05:18 99 H 97 09/03/23 05:16 96 H 141/80 H 09/03/23 05:13 107 H 98 09/03/23 05:08 120 H 98 09/03/23 05:03 93 H 99 09/03/23 04:58 91 H 99 09/03/23 04:53 96 H 99 09/03/23 04:48 91 H 99 09/03/23 04:46 91 H 122/82 09/03/23 04:43 91 H 98 09/03/23 04:38 86 98 09/03/23 04:33 89 98 05 04:32 90 123/65 09/03/23 04:28 86 97 09/03/23 04:23 85 98 09/03/23 04:18 83 98 09/03/23 04:17 73 113/61 05 04:16 77 92 05 04:13 85 98 09/03/23 04:08 78 97 09/03/23 04:03 80 98 05 04:01 74 107/59 L 09/03/23 03:58 80 98 05 03:53 69 96 09/03/23 03:48 67 97 05 03:46 68 92/55 L 09/03/23 03:43 66 97 05 03:38 67 97 05 03:33 67 97 05 03:32 67 99/55 L 09/03/23 03:28 70 97 05 03:23 73 98 09/03/23 03:18 69 97 09/03/23 03:16 71 108/56 L 09/03/23 03:13 85 98 09/03/23 03:08 85 98 09/03/23 03:03 79 98 09/03/23 03:01 76 126/56 L 09/03/23 03:00 18 09/03/23 03:00 36.8 C 18 09/03/23 02:58 83 96 09/03/23 02:53 79 96 09/03/23 02:48 83 96 09/03/23 02:46 79 132/61 09/03/23 02:43 84 96 09/03/23 02:38 74 97 09/03/23 02:33 91 H 98 09/03/23 02:30 76 120/57 L 09/03/23 02:28 80 97 09/03/23 02:23 74 97 09/03/23 02:18 72 97 09/03/23 02:17 73 120/56 L 09/03/23 02:13 76 96 09/03/23 02:08 75 96 09/03/23 02:03 75 97 09/03/23 02:01 72 127/62 09/03/23 01:58 88 96 09/03/23 01:53 73 97 09/03/23 01:48 76 97 09/03/23 01:45 71 127/67 09/03/23 01:43 75 98 09/03/23 01:38 99 H 99 09/03/23 01:33 71 97 09/03/23 01:30 77 118/63 09/03/23 01:28 70 97 09/03/23 01:23 99 H 99 09/03/23 01:18 85 99 09/03/23 01:16 68 107/63 09/03/23 01:13 72 97 09/03/23 01:08 70 97 09/03/23 01:03 70 97 09/03/23 01:02 71 117/63 09/03/23 01:00 18 09/03/23 01:00 36.5 C 18 09/03/23 00:58 74 98 09/03/23 00:53 71 98 09/03/23 00:48 75 99 09/03/23 00:46 78 111/69 05/24 00:43 76 99 09/03/23 00:38 83 99 09/03/23 00:33 86 99 09/03/23 00:30 76 120/64 09/03/23 00:28 81 99 09/03/23 00:23 80 98 09/03/23 00:18 80 98 09/03/23 00:17 78 116/62 09/03/23 00:13 78 98 09/03/23 00:08 74 97 09/03/23 00:03 80 97 09/03/23 00:01 80 145/73 H 09/02/23 23:58 89 97 09/02/23 23:53 84 96 09/02/23 23:48 80 97 09/02/23 23:46 86 125/74 09/02/23 23:43 84 96 09/02/23 23:38 81 97 09/02/23 23:33 84 98 09/02/23 23:31 80 132/72 09/02/23 23:28 92 H 99 09/02/23 23:23 87 97 09/02/23 23:18 84 99 09/02/23 23:15 81 139/68 09/02/23 23:13 78 97 09/02/23 23:08 77 97 09/02/23 23:03 86 99 09/02/23 23:00 18 09/02/23 23:00 36.8 C 18 09/02/23 22:58 85 99 09/02/23 22:53 89 100 09/02/23 22:48 72 98 09/02/23 22:45 75 117/57 L 09/02/23 22:43 78 100 09/02/23 22:38 71 98 09/02/23 22:33 85 99 09/02/23 22:31 83 146/80 H 09/02/23 22:28 95 H 100 09/02/23 22:23 80 97 09/02/23 22:18 82 99 09/02/23 22:15 76 130/65 09/02/23 22:13 78 98 09/02/23 22:08 79 98 09/02/23 22:03 81 98 09/02/23 22:01 75 134/67 09/02/23 21:58 76 97 09/02/23 21:53 84 99 09/02/23 21:48 81 99 09/02/23 21:46 77 130/61 09/02/23 21:43 89 99 09/02/23 21:38 84 100 09/02/23 21:33 91 H 98 09/02/23 21:31 66 104/55 L 09/02/23 21:28 67 97 09/02/23 21:23 73 97 09/02/23 21:18 70 97 09/02/23 21:16 65 110/52 L 09/02/23 21:13 68 98 09/02/23 21:08 66 98 09/02/23 21:03 79 99 09/02/23 21:01 69 108/53 L 09/02/23 21:00 18 09/02/23 21:00 36.7 C 18 09/02/23 20:58 66 98 09/02/23 20:53 68 100 09/02/23 20:48 75 100 09/02/23 20:46 76 137/57 L 09/02/23 20:43 89 98 09/02/23 20:38 83 99 09/02/23 20:33 88 100 09/02/23 20:31 100 H 124/73 09/02/23 20:28 75 97 09/02/23 20:23 77 98 09/02/23 20:18 82 99 09/02/23 20:15 78 122/64 09/02/23 20:13 76 97 09/02/23 20:08 75 98 09/02/23 20:03 72 99 09/02/23 20:01 73 121/65 09/02/23 19:58 87 97 09/02/23 19:53 81 100 09/02/23 19:48 87 99 09/02/23 19:46 73 109/64 09/02/23 19:43 76 98 09/02/23 19:38 74 98 09/02/23 19:33 74 98 09/02/23 19:31 75 119/61 09/02/23 19:28 77 98 09/02/23 19:23 74 98 09/02/23 19:18 76 97 09/02/23 19:15 74 118/59 L 09/02/23 19:13 73 97 09/02/23 19:10 18 09/02/23 19:10 36.6 C 18 09/02/23 19:08 85 100 09/02/23 19:07 77 117/58 L 09/02/23 19:05 36.6 C 18 09/02/23 19:03 94 H 97 09/02/23 19:02 70 119/57 L 09/02/23 18:58 70 97 09/02/23 18:53 69 97 09/02/23 18:48 79 98 09/02/23 18:47 78 94 09/02/23 18:46 82 20 119/66 09/02/23 18:43 73 96 09/02/23 18:38 76 97 09/02/23 18:33 72 97 09/02/23 18:28 73 97 09/02/23 18:26 73 114/55 L 09/02/23 18:23 75 97 09/02/23 18:21 69 112/56 L 09/02/23 18:18 69 96 09/02/23 18:16 82 20 119/54 L 09/02/23 18:13 82 98 09/02/23 18:09 71 98/54 L 09/02/23 18:08 72 97 09/02/23 18:07 82 18 108/50 L 09/02/23 18:05 78 104/56 L 09/02/23 18:04 79 18 117/57 L 09/02/23 18:03 82 98 09/02/23 18:01 68 101/49 L 09/02/23 17:59 71 18 99/52 L 09/02/23 17:58 73 97 09/02/23 17:57 67 18 110/50 L 09/02/23 17:55 78 107/56 L 09/02/23 17:53 97 09/02/23 17:53 76 09/02/23 17:53 75 18 114/57 L 09/02/23 17:51 80 112/54 L 09/02/23 17:50 75 18 113/56 L 09/02/23 17:48 83 98 09/02/23 17:47 86 18 122/71 09/02/23 17:46 88 18 145/74 H 09/02/23 17:43 92 H 18 160/101 H 99 09/02/23 17:39 93 H 94 09/02/23 17:38 86 99 09/02/23 17:33 86 145/91 H 100 09/02/23 17:28 98 H 98 09/02/23 17:23 77 97 09/02/23 17:21 86 20 142/89 H 09/02/23 17:18 81 100 09/02/23 17:13 81 99 09/02/23 17:08 81 99 09/02/23 17:03 86 100 09/02/23 16:58 73 99 09/02/23 16:47 95 H 100 09/02/23 16:42 91 H 100 09/02/23 16:37 67 98 09/02/23 16:33 36.4 C L 68 18 139/71 09/02/23 16:32 73 97 09/02/23 15:42 69 18 129/66 09/02/23 15:27 68 139/71 09/02/23 15:15 20 09/02/23 15:15 36.3 C L 20 09/02/23 15:08 89 20 182/84 H 09/02/23 14:00 80 138/80 09/02/23 13:50 83 18 148/68 H 09/02/23 13:30 85 20 152/75 H 09/02/23 13:16 83 136/82 09/02/23 12:09 75 20 142/80 H O2 Del Method 09/03/23 11:00 09/03/23 11:00 Room Air 09/03/23 10:12 09/03/23 10:12 Room Air 09/03/23 09:22 09/03/23 09:17 09/03/23 09:17 09/03/23 09:17 09/03/23 09:12 09/03/23 09:07 09/03/23 09:02 09/03/23 08:57 09/03/23 08:52 09/03/23 08:47 09/03/23 08:47 09/03/23 08:47 09/03/23 08:47 09/03/23 08:42 09/03/23 08:38 09/03/23 08:37 09/03/23 08:32 09/03/23 08:27 09/03/23 08:22 09/03/23 08:18 09/03/23 08:17 09/03/23 08:17 09/03/23 08:12 09/03/23 08:07 09/03/23 08:07 09/03/23 08:02 09/03/23 07:57 09/03/23 07:57 09/03/23 07:52 09/03/23 07:47 09/03/23 07:47 09/03/23 07:42 09/03/23 07:37 09/03/23 07:37 09/03/23 07:32 09/03/23 07:30 09/03/23 07:27 09/03/23 07:27 09/03/23 07:22 09/03/23 07:17 09/03/23 07:17 09/03/23 06:01 09/03/23 05:58 09/03/23 05:53 09/03/23 05:48 09/03/23 05:45 09/03/23 05:43 09/03/23 05:38 09/03/23 05:33 09/03/23 05:30 09/03/23 05:28 09/03/23 05:23 09/03/23 05:18 09/03/23 05:16 09/03/23 05:13 09/03/23 05:08 09/03/23 05:03 09/03/23 04:58 09/03/23 04:53 09/03/23 04:48 09/03/23 04:46 09/03/23 04:43 09/03/23 04:38 09/03/23 04:33 09/03/23 04:32 09/03/23 04:28 09/03/23 04:23 09/03/23 04:18 09/03/23 04:17 09/03/23 04:16 09/03/23 04:13 09/03/23 04:08 09/03/23 04:03 09/03/23 04:01 09/03/23 03:58 09/03/23 03:53 09/03/23 03:48 09/03/23 03:46 09/03/23 03:43 09/03/23 03:38 09/03/23 03:33 09/03/23 03:32 09/03/23 03:28 09/03/23 03:23 09/03/23 03:18 09/03/23 03:16 09/03/23 03:13 09/03/23 03:08 09/03/23 03:03 09/03/23 03:01 09/03/23 03:00 09/03/23 03:00 09/03/23 02:58 09/03/23 02:53 09/03/23 02:48 09/03/23 02:46 09/03/23 02:43 09/03/23 02:38 09/03/23 02:33 09/03/23 02:30 09/03/23 02:28 09/03/23 02:23 09/03/23 02:18 09/03/23 02:17 09/03/23 02:13 09/03/23 02:08 09/03/23 02:03 09/03/23 02:01 09/03/23 01:58 09/03/23 01:53 09/03/23 01:48 09/03/23 01:45 09/03/23 01:43 09/03/23 01:38 09/03/23 01:33 09/03/23 01:30 09/03/23 01:28 09/03/23 01:23 09/03/23 01:18 09/03/23 01:16 09/03/23 01:13 09/03/23 01:08 09/03/23 01:03 09/03/23 01:02 09/03/23 01:00 09/03/23 01:00 09/03/23 00:58 09/03/23 00:53 09/03/23 00:48 09/03/23 00:46 09/03/23 00:43 09/03/23 00:38 09/03/23 00:33 09/03/23 00:30 09/03/23 00:28 09/03/23 00:23 09/03/23 00:18 09/03/23 00:17 09/03/23 00:13 09/03/23 00:08 09/03/23 00:03 09/03/23 00:01 09/02/23 23:58 09/02/23 23:53 09/02/23 23:48 09/02/23 23:46 09/02/23 23:43 09/02/23 23:38 09/02/23 23:33 09/02/23 23:31 09/02/23 23:28 09/02/23 23:23 09/02/23 23:18 09/02/23 23:15 09/02/23 23:13 09/02/23 23:08 09/02/23 23:03 09/02/23 23:00 09/02/23 23:00 09/02/23 22:58 09/02/23 22:53 09/02/23 22:48 09/02/23 22:45 09/02/23 22:43 09/02/23 22:38 09/02/23 22:33 09/02/23 22:31 09/02/23 22:28 09/02/23 22:23 09/02/23 22:18 09/02/23 22:15 09/02/23 22:13 09/02/23 22:08 09/02/23 22:03 09/02/23 22:01 09/02/23 21:58 09/02/23 21:53 09/02/23 21:48 09/02/23 21:46 09/02/23 21:43 09/02/23 21:38 09/02/23 21:33 09/02/23 21:31 09/02/23 21:28 09/02/23 21:23 09/02/23 21:18 09/02/23 21:16 09/02/23 21:13 09/02/23 21:08 09/02/23 21:03 09/02/23 21:01 09/02/23 21:00 09/02/23 21:00 09/02/23 20:58 09/02/23 20:53 09/02/23 20:48 09/02/23 20:46 09/02/23 20:43 09/02/23 20:38 09/02/23 20:33 09/02/23 20:31 09/02/23 20:28 09/02/23 20:23 09/02/23 20:18 09/02/23 20:15 09/02/23 20:13 09/02/23 20:08 09/02/23 20:03 09/02/23 20:01 09/02/23 19:58 09/02/23 19:53 09/02/23 19:48 09/02/23 19:46 09/02/23 19:43 09/02/23 19:38 09/02/23 19:33 09/02/23 19:31 09/02/23 19:28 09/02/23 19:23 09/02/23 19:18 09/02/23 19:15 09/02/23 19:13 09/02/23 19:10 09/02/23 19:10 09/02/23 19:08 09/02/23 19:07 09/02/23 19:05 09/02/23 19:03 09/02/23 19:02 09/02/23 18:58 09/02/23 18:53 09/02/23 18:48 09/02/23 18:47 09/02/23 18:46 09/02/23 18:43 09/02/23 18:38 09/02/23 18:33 09/02/23 18:28 09/02/23 18:26 09/02/23 18:23 09/02/23 18:21 09/02/23 18:18 09/02/23 18:16 09/02/23 18:13 09/02/23 18:09 09/02/23 18:08 09/02/23 18:07 09/02/23 18:05 09/02/23 18:04 09/02/23 18:03 09/02/23 18:01 09/02/23 17:59 09/02/23 17:58 09/02/23 17:57 09/02/23 17:55 09/02/23 17:53 09/02/23 17:53 09/02/23 17:53 09/02/23 17:51 09/02/23 17:50 09/02/23 17:48 09/02/23 17:47 09/02/23 17:46 09/02/23 17:43 09/02/23 17:39 09/02/23 17:38 09/02/23 17:33 09/02/23 17:28 09/02/23 17:23 09/02/23 17:21 09/02/23 17:18 09/02/23 17:13 09/02/23 17:08 09/02/23 17:03 09/02/23 16:58 09/02/23 16:47 09/02/23 16:42 09/02/23 16:37 09/02/23 16:33 09/02/23 16:32 09/02/23 15:42 09/02/23 15:27 09/02/23 15:15 09/02/23 15:15 09/02/23 15:08 09/02/23 14:00 09/02/23 13:50 09/02/23 13:30 09/02/23 13:16 09/02/23 12:09 Notes Mental Status: alert / awake / arousable Patient Amnestic to Procedure: Yes Nausea / Vomiting: adequately controlled Pain: adequately controlled Airway Patency, RR, SpO2: stable & adequate BP & HR: stable & adequate Hydration State: stable & adequate Neuraxial Anesthesia: was administered and sensory block is resolving Anesthetic Complications: no major complications apparent
[2023-09-03] MEDS: KETOROLAC 30 MG/ML VIAL IV PRN (15:56)
[2023-09-03] MEDS: SIMETHICONE 80 MG CHEW PO SCH (17:32)
[2023-09-04] MEDS: DOCUSATE SODIUM 100 MG CAP PO SCH (00:18)
[2023-09-04] MEDS ORDERED: oxyCODONE/ACETAMINOPHEN 5mg/325mg TAB PO PRN (00:51)
[2023-09-04] MEDS ORDERED: KETOROLAC 30 MG/ML VIAL IV PRN (00:51)
[2023-09-04] MEDS ORDERED: diphenhydrAMINE Capsule 25 MG CAP PO PRN (00:51)
[2023-09-04] MEDS: IBUPROFEN 600 MG TAB PO PRN (04:01)
[2023-09-04 06:44] LABS: Basophils # (auto) 0.02 K/uL (0.00-0.20); Basophils % (auto) 0.1 %; Eosinophils # (auto) 0.03 K/uL (0.00-0.50); Eosinophils % (auto) 0.2 %; Hematocrit (blood only) 23.8 % (37.0-47.0); Hemoglobin 7.7 g/dl (12.0-16.0); Immature Granulocytes # (auto) 0.07 K/uL (0.01-0.20); Immature Granulocytes % (auto) 0.5 %; Lymphocytes # (auto) 1.42 K/uL (1.20-3.40); Lymphocytes % (auto) 10.3 %; Mean Corpuscular Hemoglobin 27.3 pg (25.0-34.0); Mean Corpuscular Hgb Conc 32.4 g/dL (32.0-36.0); Mean Corpuscular Volume 84.4 fL (80.0-100.0); Mean Platelet Volume 11.3 fL (9.4-12.4); Monocytes # (auto) 1.06 K/uL (0.11-0.59); Monocytes % (auto) 7.7 %; Neutrophils # (auto) 11.24 K/uL (1.40-6.50); Neutrophils % (auto) 81.2 %; Platelet Count 147 K/uL (130-400); RDW Coefficient of Variation 14.7 % (11.5-14.5); RDW Standard Deviation 45.1 fL (36.4-46.3); Red Blood Count 2.82 M/uL (4.20-5.40); White Blood Count 13.84 K/ul (4.8-10.8)
[2023-09-04 08:00] LABS: RBC Morphology Unremarkable
--- NOTE | 2023-09-04 08:07 | Obstetrical Progress Note ---
Date of Service September 04, 2023 Assessment & Plan (1) care following delivery: Plan doing well postop, routine care. hgb noted, recheck in am. adv diet, ambulate. voiding well. good pain control. Day #:: 1 Subjective Ambulation: ambulating normally Voiding: no voiding problems Diet Tolerance:: regular diet Lochia:: Small Feeding Type:: breast feeding no pain concerns Physical Exam Constitutional WD/WN, vitals as above Respiratory normal respiratory effort, lungs clear to auscultation Cardiovascular Rate/Rhythm: regular rate and regular rhythm Gastrointestinal (Abdomen) Inspection/Auscultation: abdomen normal to inspection Percussion/Palpation: abdomen soft Fundus firm 2cm down incision c/d/i with steris Musculoskeletal nt calves no edema Neurologic grossly normal Psychiatric A+Ox3, euthymic affect Results & Data Vital Signs (Past 12 Hours) Vital Signs Temp Pulse Pulse Resp BP Pulse Ox O2 Del Method 09/04/23 04:00 99.0 F 81 16 120/63 97 Room Air 09/04/23 01:00 99.0 F 88 20 136/78 99 Room Air 09/04/23 01:00 20 99 09/04/23 00:00 20 99 09/03/23 23:03 18 98 09/03/23 21:54 18 98 09/03/23 21:00 18 99 09/03/23 20:15 Room Air 09/03/23 20:15 98.6 F 84 18 120/66 100 Room Air
[2023-09-05 06:32] LABS: Hemoglobin 7.7 g/dl (12.0-16.0)
--- NOTE | 2023-09-05 07:22 | Obstetrical Progress Note ---
Date of Service September 05, 2023 Assessment & Plan (1) care following delivery: 22 yo POD 2 from [facility], doing well -Meeting all pp milestones -A+/rubella immune/ -f/u 6 weeks for appt. Desires dc home today, ok to do so Subjective Ambulation: ambulating normally Voiding: no voiding problems Passing Gas:: Yes Diet Tolerance:: regular diet Lochia:: Small Feeding Type:: breast feeding Pain well managed with medication Review of Systems Denies fevers, chills, n/v, GONZALEZ, CP, SOB Physical Exam Constitutional WD/WN, vitals as above no acute distress Respiratory normal respiratory effort, lungs clear to auscultation Cardiovascular RRR, no murmur, no edema Gastrointestinal (Abdomen) Percussion/Palpation: abdomen soft; abdomen nontender fundus firm at umbilicus and NT, incision c/d/i Musculoskeletal BLE symmetric, nonerythematous, nontender Results & Data Vital Signs (Past 12 Hours) Vital Signs Temp Pulse Resp BP Pulse Ox O2 Del Method 09/05/23 00:15 97.9 F 80 18 132/73 99 Room Air 09/04/23 20:55 98.2 F 77 20 136/83 100 Room Air
[2023-09-05 08:22] VITALS: PULSE 77; TEMP 98.2
[2023-09-05 13:03] VITALS: RESP 18; O2SAT 100
[2023-09-05 14:26] LABS: Basophils # (auto) 0.02 K/uL (0.00-0.20); Basophils % (auto) 0.2 %; Eosinophils # (auto) 0.09 K/uL (0.00-0.50); Eosinophils % (auto) 0.9 %; Hematocrit (blood only) 24.3 % (37.0-47.0); Immature Granulocytes # (auto) 0.07 K/uL (0.01-0.20); Immature Granulocytes % (auto) 0.7 %; Lymphocytes # (auto) 1.26 K/uL (1.20-3.40); Lymphocytes % (auto) 13.2 %; Mean Corpuscular Hgb Conc 32.9 g/dL (32.0-36.0); Monocytes # (auto) 0.53 K/uL (0.11-0.59); Monocytes % (auto) 5.6 %; Neutrophils # (auto) 7.55 K/uL (1.40-6.50); Neutrophils % (auto) 79.4 %; Platelet Count 185 K/uL (130-400); RDW Standard Deviation 45.8 fL (36.4-46.3); Red Blood Count 2.86 M/uL (4.20-5.40); White Blood Count 9.52 K/ul (4.8-10.8)
[2023-09-05 14:50] LABS: Alanine Aminotransferase 15 U/L (7-52); Albumin Globulin Ratio 1.1 (0.9-2); Albumin Level 2.9 gm/dl (3.4-5.0); Alkaline Phosphatase 120 U/L (34-104); Anion Gap 6 (3-11); Aspartate Aminotransferase 19 U/L (13-39); BUN Creatinine Ratio 22.4 (10-20); Bilirubin,Total 0.2 mg/dl (0.2-1.0); Blood Urea Nitrogen 11 mg/dl (6-23); Calcium 8.1 mg/dl (8.6-10.3); Carbon Dioxide 25 mmol/L (21-32); Chloride 111 mmol/L (98-107); Creatinine Clr Calc Pharmacy 219.6 ml/min; Est GFR (African American) > 150.0 ml/min; Est GFR (Non-African American) 136.4 ml/min; Globulin 2.6 gm/dl (2.5-4.0); Glucose 120 mg/dl (70-99(Fasting)); Potassium 3.9 mmol/L (3.5-5.1); Sodium 142 mmol/L (136-145); Total Protein 5.5 gm/dl (6.0-8.3)
[2023-09-05 15:29] VITALS: BP 143/95
== END 2023-09-05 17:45 | disposition home or self-care (01) | DRG 788 ==
LOC: OPB 04:38 → 4S1 04:40 → 4E1 09-03 09:53
DX: O48.0 Post-term pregnancy; Z79.82 Long term (current) use of aspirin; Z88.5 Allergy status to narcotic agent; O42.02 Full-term premature rupture of membranes, onset of labor within 24 hours of rupture; O75.89 Other specified complications of labor and delivery; Z3A.40 40 weeks gestation of pregnancy; Z37.0 Single live birth; O62.2 Other uterine inertia